=== PATIENT | male | born 1970 | race African-American/Black ===

== ENCOUNTER 2020-10-02 23:02 | Emergency (ER) | payer OTHER ==
[~2020-10-02 23:02] MED LIST: ANTIVERT25 MG PO; BUSPAR5 MG PO; PRILOSEC20 MG PO; ZYRTEC10 M3 PO
[2020-10-02 23:39] LABS: BASOPHIL 0.6 % (0-2); EOSINOPHIL 1.3 % (0-5); HCT 42.1 % (42.0-52.0); HGB 14.4 g/dl (13.2-18.0); MCH 30.6 pg (25.0-31.0); MCHC 34.2 g/dL (32.0-36.0); MCV 89.6 fL (78.0-100.0); MONOCYTE 7.7 % (0-12); MPV 9.8 fL (6.0-9.5); NEUTROPHIL 43.2 % (41-80); NRBC 0; PLT 286 K/uL (150-400); RDW 13.2 % (11.5-14.0); WBC 6.3 K/uL (4.0-10.5)
[2020-10-02 23:49] LABS: PROTHROMBIN TIME 12.5 SECONDS (11.4-13.6); PTT 27.3 SECONDS (22.2-34.7)
[2020-10-02 23:57] LABS: ALBUMIN 3.7 g/dL (3.4-5.0); BILIRUBIN - TOTAL 0.3 mg/dL (0.2-1.0); BUN/CREAT RATIO (CALC) 14.5 RATIO; CREATININE 1.1 mg/dL (0.67-1.17); GLOBULIN (CALCULATION) 3.7 g/dL; MAGNESIUM 1.9 mg/dL (1.8-2.4); POTASSIUM 3.9 mmol/L (3.5-5.1); TOTAL PROTEIN 7.4 g/dL (6.4-8.2)
[2020-10-03 00:06] LABS: PRO-BNP 211 pg/mL (<125)
[2020-10-03 01:08] LABS: CORONAVIRUS 2019 SARS-COV-2 NEGATIVE (NEGATIVE); INFLUENZA A NAA NEGATIVE (NEGATIVE)
== END 2020-10-03 03:20 | disposition home or self-care (01) ==
LOC: FER 23:02
PROVIDERS: Emergency Medicine Emergency Medical Services
DX: R07.89 Other chest pain (principal); R06.02 Shortness of breath; R05 Cough; I10 Essential (primary) hypertension; Z79.899 Other long term (current) drug therapy; Z20.822 Contact with and (suspected) exposure to COVID-19
CPT/HCPCS: 36415; 71045; 80053; 83735; 83880; 84145; 84484; 85025; 85610; 85730; 93005; U0002

== ENCOUNTER 2021-11-30 19:12 | Emergency (ER) | payer OTHER ==
[2021-11-30 19:58] LABS: BASOPHIL 0.8 % (0-2); EOSINOPHIL 0.8 % (0-5); HCT 40.3 % (42.0-52.0); HGB 13.9 g/dl (13.2-18.0); LYMPHOCYTE 47.1 % (15-48); MCH 30.3 pg (25.0-31.0); MCHC 34.5 g/dL (32.0-36.0); MPV 9.7 fL (6.0-9.5); NRBC 0; PLT 251 K/uL (150-400); RBC 4.58 M/uL (4.70-6.00); RDW 12.9 % (11.5-14.0); WBC 6.5 K/uL (4.0-10.5)
[2021-11-30 20:20] LABS: ALBUMIN 4.3 g/dL (3.4-5.0); BILIRUBIN - TOTAL 0.3 mg/dL (0.2-1.0); BUN/CREAT RATIO (CALC) 13.2 RATIO; CREATININE 1.06 mg/dL (0.67-1.17); FT4 (FREE T4) 0.7 ng/dL (0.76-1.46); POTASSIUM 3.5 mmol/L (3.5-5.1); TOTAL PROTEIN 8.3 g/dL (6.4-8.2)
== END 2021-11-30 22:00 | disposition home or self-care (01) ==
LOC: FER 19:12
PROVIDERS: Internal Medicine
DX: R07.89 Other chest pain (principal); K21.9 Gastro-esophageal reflux disease without esophagitis; I10 Essential (primary) hypertension; Z87.891 Personal history of nicotine dependence; Z91.041 Radiographic dye allergy status; Z79.82 Long term (current) use of aspirin; Z79.899 Other long term (current) drug therapy
CPT/HCPCS: 36415; 71045; 80053; 83690; 83735; 84145; 84439; 84443; 84484; 85025; 93005; J3490

== ENCOUNTER 2022-01-29 17:30 | Emergency (ER) | payer OTHER ==
[2022-01-29 18:54] LABS: BASOPHIL 0.3 % (0-2); EOSINOPHIL 0.7 % (0-5); HCT 40.9 % (42.0-52.0); HGB 14.1 g/dl (13.2-18.0); MCH 30.7 pg (25.0-31.0); MCHC 34.5 g/dL (32.0-36.0); MCV 88.9 fL (78.0-100.0); MONOCYTE 8.4 % (0-12); MPV 9.8 fL (6.0-9.5); NEUTROPHIL 55.1 % (41-80); NRBC 0; PLT 251 K/uL (150-400); RDW 13.1 % (11.5-14.0); WBC 5.9 K/uL (4.0-10.5)
[2022-01-29 19:09] LABS: ALBUMIN 4.4 g/dL (3.4-5.0); BILIRUBIN - TOTAL 0.2 mg/dL (0.2-1.0); BUN/CREAT RATIO (CALC) 10.9 RATIO; CREATININE 1.1 mg/dL (0.67-1.17); GLOBULIN (CALCULATION) 3.7 g/dL; POTASSIUM 4.1 mmol/L (3.5-5.1); TOTAL PROTEIN 8.1 g/dL (6.4-8.2)
== END 2022-01-29 19:56 | disposition home or self-care (01) ==
LOC: FER 17:30
PROVIDERS: Emergency Medicine
DX: I49.3 Ventricular premature depolarization (principal); R06.00 Dyspnea, unspecified; I10 Essential (primary) hypertension; Z91.041 Radiographic dye allergy status; Z79.899 Other long term (current) drug therapy
CPT/HCPCS: 36415; 71045; 80053; 84484; 85025; 85379; 93005

== ENCOUNTER 2022-03-24 22:16 | Emergency (ER) | payer OTHER ==
[2022-03-24 22:40] LABS: BASOPHIL 0.5 % (0-2); EOSINOPHIL 1.1 % (0-5); HGB 13.8 g/dl (13.2-18.0); LYMPHOCYTE 31.4 % (15-48); MCH 30.5 pg (25.0-31.0); MCHC 34.5 g/dL (32.0-36.0); MCV 88.5 fL (78.0-100.0); MONOCYTE 9.1 % (0-12); MPV 9.4 fL (6.0-9.5); NEUTROPHIL 57.6 % (41-80); NRBC 0; PLT 219 K/uL (150-400); RBC 4.52 M/uL (4.70-6.00); RDW 13.4 % (11.5-14.0); WBC 6.3 K/uL (4.0-10.5)
[2022-03-24 23:02] LABS: BILIRUBIN - TOTAL 0.5 mg/dL (0.2-1.0); BUN/CREAT RATIO (CALC) 10.3 RATIO; CREATININE 1.16 mg/dL (0.67-1.17); GLOBULIN (CALCULATION) 3.3 g/dL; MAGNESIUM 1.9 mg/dL (1.8-2.4); POTASSIUM 3.5 mmol/L (3.5-5.1); TOTAL PROTEIN 7.3 g/dL (6.4-8.2)
[2022-03-24 23:26] LABS: CORONAVIRUS 2019 SARS-COV-2 NEGATIVE (NEGATIVE); INFLUENZA A NAA NEGATIVE (NEGATIVE)
== END 2022-03-25 02:25 | disposition home or self-care (01) ==
LOC: FER 22:16
PROVIDERS: Emergency Medicine
DX: R00.2 Palpitations (principal); R07.89 Other chest pain; I10 Essential (primary) hypertension; Z79.899 Other long term (current) drug therapy; Z91.041 Radiographic dye allergy status; Z20.822 Contact with and (suspected) exposure to COVID-19
CPT/HCPCS: 36415; 71045; 80053; 83735; 83880; 84484; 85025; 93005; U0002